=== PATIENT | female | born 1975 | race African-American/Black ===

== ENCOUNTER 2018-05-03 06:13 | Day surgery (SDC) | payer BC ==
[2018-04-30 14:17] VITALS: BMI 23.8
[2018-05-03] MEDS ORDERED: DEXAMETHASONE SOD PHOSPHATE 4 MG/1 ML VIAL ONE (07:13)
[2018-05-03] MEDS ORDERED: ONDANSETRON 4 MG/2 ML VIAL ONE (07:13)
[2018-05-03] MEDS ORDERED: SUCCINYLCHOLINE CHLORIDE 200 MG/10 ML VIAL ONE (07:14)
[2018-05-03] MEDS ORDERED: MIDAZOLAM HCL 2 MG/2 ML SINGLE DOSE VIAL ONE (07:14)
[2018-05-03] MEDS ORDERED: PROPOFOL 20 ML ONE (07:14)
[2018-05-03] MEDS ORDERED: ROCURONIUM BROMIDE 50 MG/5 ML VIAL ONE (07:14)
[2018-05-03] MEDS ORDERED: ceFAZolin SODIUM 1 GM VIAL ONE (08:30)
[2018-05-03] MEDS ORDERED: SEVOFLURANE 250 ML BTL ONE (08:51)
[2018-05-03] MEDS ORDERED: ePHEDrine SULFATE 50 MG/1 ML AMPULE ONE (08:56)
[2018-05-03] MEDS ORDERED: PROMETHAZINE HCL 25 MG/1 ML VIAL IVPUSH PRN (09:27)
[2018-05-03] MEDS ORDERED: oxyCODONE HCL 5 MG TABLET PO PRN (09:27)
[2018-05-03] MEDS ORDERED: LACTATED RINGERS SOLUTION 1,000 ML IV SCH (09:30)
[2018-05-03 11:29] VITALS: TEMP 98.1
[2018-05-03 12:24] VITALS: BP 112/78; PULSE 90
--- NOTE | 2018-05-04 08:41 | OP ---
DATE OF OPERATION: 05/03/2018 PREOPERATIVE DIAGNOSES: Intrauterine adhesion, confirmation of tubal patency. POSTOPERATIVE DIAGNOSES: Intrauterine adhesion, bilateral tubal patency noted. PROCEDURE: Operative hysteroscopy, lysis of adhesions, hysterosalpingogram. ESTIMATED BLOOD LOSS: 10 mL. INTRAVENOUS FLUIDS: 900 mL. HYSTEROSCOPIC FLUID DEFICIT: NaCl, 70 mL. URINE OUTPUT: Not indicated. ANESTHESIA: LMA. SPECIMENS: None. COMPLICATIONS: None. FINDINGS: Anteverted 10-weeks size uterus. No adnexal masses palpated. On hysteroscopy a thick intrauterine adhesion noted to be 1.0 cm in the midline, tubal ostia visualized bilaterally. PROCEDURE: Risks, benefits and alternatives were discussed with the patient at length and informed consent was obtained. The patient was taken to the operating room. Anesthesia was obtained without difficulty. She was then prepped and draped in the lithotomy position in [facility]. Exam under anesthesia revealed an anteverted 10-weeks size uterus. No fibroids palpated. No adnexal masses. A speculum was placed inside the vagina. The anterior lip of the cervix was grasped with a single-tooth tenaculum. A Yanni cannula was then placed in the cervix and Omnipaque was injected under fluoroscopic guidance. Bilateral fill and spill was confirmed of both fallopian tubes. Thus, tubal recanalization was not performed. The Yanni cannula was then removed and the cervix was gently dilated using Arceo dilators to 19. The hysteroscope was introduced into the uterine fundus. Both ostia were easily visualized. An intrauterine adhesion 1.0 cm was noted at the midline. The hysteroscopic scissors were then introduced through the operative port of the hysteroscope and the anterior-posterior intrauterine adhesion was incised in the middle and the remaining adhesion retracted. The cavity then appeared smooth and pictures were taken. All instruments were then removed from the vagina. Hemostasis was achieved and the patient was awakened and taken to the recovery room in stable condition. Dasia Gonzalez MD, dictating for KIM FLETCHER MD [id number] MTDD
== END 2018-05-03 12:15 | disposition home or self-care (01) ==
LOC: FASU 06:13
PROVIDERS: ATTEND Obstetrics & Gynecology Reproductive Endocrinology
PROC: BU081ZZ Plain Radiography of Uterus and Fallopian Tubes using Low Osmolar Contrast (ICD-10-PCS; 2018-05-03)
PROC: 0UN98ZZ Release Uterus, Via Natural or Artificial Opening Endoscopic (ICD-10-PCS; principal; 2018-05-03 08:45)
DX: N85.6 Intrauterine synechiae (principal); Z31.41 Encounter for fertility testing
CPT/HCPCS: 72170-TC-FY; 76000-TC-FY; 84703; 94760